=== PATIENT | male | born 1970 | race Caucasian/White ===

== ENCOUNTER 2022-07-06 09:10 | Outpatient (CLI) | payer OTHER, SELFPAY ==
--- NOTE | ~2022-07-06 | MR_ITS ---
EXAMINATION: MR shoulder LT w con DATE: 07/06/2022 11:52 INDICATION: Left shoulder pain. Left rotator cuff tear. TECHNIQUE: Magnetic resonance imaging (MRI) of the left shoulder was performed following intra-artic ular gadolinium contrast injection and without intravenous contrast. Details of the glenohumeral join t injection have been dictated separately. Sequences included axial T2-weighted FS FSE, axial T1-nestor ghted FS FSE, coronal oblique T1-weighted FS FSE, coronal oblique T2-weighted FSE, sagittal T2-weight ed FS FSE, sagittal T1-weighted FSE, and ABER (abduction external rotation) T1-weighted FS FSE. COMPARISON: None. FINDINGS: There is some mild motion artifact or blurring to some degree on all sequences which mildly limits ev aluation. Coracoacromial arch: The acromion undersurface is flat in morphology (type I). There is thinning and increased concavity t o the undersurface of the acromion suggesting sequela of prior acromioplasty. There is scarring along the acromial insertion of the coracoacromial ligament and anterior most margin of the deltoid, bladd er with minimal associated atrophy also likely related to the prior acromioplasty. Moderate acromiocl avicular osteoarthritis. Rotator cuff: Mild supraspinatus tendinopathy. Very shallow articular sided tear of the distal supraspinatus tendon with some fraying along the articular surface and mild contrast imbibition There is some articular s ided fraying and minimal intrasubstance contrast imbibition the distalmost supraspinatus tendon along its superior facet footplate which is best appreciated on the ABER images. No discrete measurable te ar defect appreciated. Likely associated small erosion along the articular side of the superior facet footplate. Minimal infraspinatus tendinopathy without tear. The teres minor tendon is normal. Mild s ubscapularis tendinopathy without tear. Normal rotator cuff muscle bulk and signal. Biceps tendon, glenoid labrum and glenohumeral cartilage: Long head of the biceps tendon is intact. The anteroinferior glenoid labrum appear small with mild fr aying along the margins suggesting chronic mild degenerative tearing. Likely SLAP tear with intra-art icular contrast extension into a small irregular cleft at the base of the superior glenoid labrum. Th e glenohumeral cartilage appears relatively preserved. Bones and other: Small bone island at the humeral head. Otherwise normal marrow signal with no edema, fracture or path ologic marrow replacing process. No abnormal increased fluid in the subacromial/subdeltoid bursa to s uggest bursitis. IMPRESSION: 1. Mild tendinopathy and small region of very shallow articular sided fraying along the distal supras pinatus tendon. No measurable rotator cuff tear defect appreciated. 2. Tear at the superior glenoid labrum with likely additional mild degeneration along the anteroinfer ior labrum. 3. Moderate acromioclavicular osteoarthritis and postoperative changes of prior acromioplasty. 4. Evaluation mildly limited by mild motion artifact or blurring on multiple sequences. Reviewed, dictated and finalized at location A. IMPRESSION: 1. Mild tendinopathy and small region of very shallow articular sided fraying a long the distal supraspinatus tendon. No measurable rotator cuff tear defect ap preciated. 2. Tear at the superior glenoid labrum with likely additional mild degeneration along the anteroinferior labrum. 3. Moderate acromioclavicular osteoarthritis and postoperative changes of prior acromioplasty. 4. Evaluation mildly limited by mild motion artifact or blurring on multiple se quences.
--- NOTE | ~2022-07-06 | XR_ITS ---
EXAMINATION: XR fl inj shoulder LT - MR/CT DATE: 07/06/2022 11:05 INDICATION: Left shoulder pain. TECHNIQUE: A time-out was performed to verify the patient's name, date of , and procedure to b e performed. The procedure including the risks, benefits, and alternatives was discussed with the pat ient. Risks discussed included bleeding and infection. The patient understood the risks and agreed to proceed. The skin overlying the rotator cuff interval of the left glenohumeral joint was prepped an d draped in usual sterile fashion. Anesthetic was administered with 1% lidocaine subcutaneously. A 22 G needle was advanced under fluoroscopic guidance into the joint. Injection of 1 mL of Omnipaque 240 confirmed intra-articular position of the needle. Subsequently, injectate consisting of 12 mL of 2:1:1 mixture of sterile saline:Omnipaque 240:1% lidocaine mixed 200:1 with 529 mg/mL Multihance anton olinium contrast was injected with intra-articular administration confirmed with intermittent fluoros copy. The needle was removed and the entry site was cleaned and dressed. There were no immediate com plications. Fluoroscopy exposure time was 0.1 minutes. The total number of images was 4. FINDINGS: Real-time fluoroscopy demonstrates the needle in the left glenohumeral joint. IMPRESSION: 1. Successful left glenohumeral joint injection of dilute gadolinium contrast mixture for subsequent MRI arthrogram which will be dictated separately. Reviewed, dictated and finalized at location A. IMPRESSION: 1. Successful left glenohumeral joint injection of dilute gadolinium contrast m ixture for subsequent MRI arthrogram which will be dictated separately.
== END 2022-07-06 09:11 | disposition home or self-care (01) ==
PROVIDERS: PCP Family Medicine
DX: M75.102 Unspecified rotator cuff tear or rupture of left shoulder, not specified as traumatic (principal); M75.92 Shoulder lesion, unspecified, left shoulder; S43.432A Superior glenoid labrum lesion of left shoulder, initial encounter; M19.012 Primary osteoarthritis, left shoulder
CPT/HCPCS: 23350; 73222; A9577; Q9966

== ENCOUNTER 2023-06-23 09:47 | Outpatient (CLI) | payer OTHER, SELFPAY ==
[2023-06-23 19:15] LABS: Hematocrit 45.4 % (42.0-52.0); Mean Corpuscular Hemoglobin 31.4 pg (26-34); Mean Platelet Volume 11.2 fl (7.4-10.4); Platelet Count Result 227 k/mm3 (150-375); Red Blood Count 4.78 M/mm3 (4.6-6.20); Red Cell Distribution Width 12.8 % (11.5-14.5); White Blood Count 5.3 K/mm3 (4.5-10.0)
[2023-06-23 19:39] LABS: Vitamin D 25 Hydroxy 35.7 ng/mL
[2023-06-23 19:45] LABS: Alanine Aminotransferase 146 U/L (6-50); Albumin Level 4.3 g/dL (3.5-5.1); Alkaline Phosphatase 80 U/L (38-126); Anion Gap 4 mmol/L (8-16); Aspartate Amino Transferase 120 U/L (17-59); Bilirubin,Total 0.7 mg/dL (0.2-1.3); Blood Urea Nitrogen 13 mg/dL (9-20); Calcium 9.5 mg/dL (8.4-10.2); Carbon Dioxide 29 mmol/L (22-30); Chloride 103 mmol/L (98-107); Cholesterol 240 mg/dL (0-200); Estimated Glomerular Filt Rate > 60; Glucose 100 mg/dL (65-110); HDL Direct 57 mg/dL; Potassium 3.8 mmol/L (3.4-5.0); Sodium 136 mmol/L (137-145); Triglycerides 219 mg/dL (<150)
[2023-06-23 19:56] LABS: LDL Cholesterol Direct 129 mg/dL
[2023-06-25 14:00] LABS: Hemoglobin A1C 7.1 % (<5.7)
[2023-06-25 14:12] LABS: Prostate Specific Antigen 0.8 ng/mL (< OR = 4.0)
[2023-06-28 12:13] LABS: Testosterone Free 62.5 pg/mL (35.0-155.0); Testosterone Total 456 ng/dL (250-1100)
== END 2023-06-23 09:48 | disposition home or self-care (01) ==
PROVIDERS: PCP Nurse Practitioner Adult Health; Visit Provider Nurse Practitioner Adult Health
DX: Z12.5 Encounter for screening for malignant neoplasm of prostate (principal); I10 Essential (primary) hypertension; N52.9 Male erectile dysfunction, unspecified; R53.83 Other fatigue; E66.9 Obesity, unspecified; Z13.9 Encounter for screening, unspecified
CPT/HCPCS: 36415; 80053; 80061; 82306; 83036; 84153; 84402; 84403; 84443; 85027; G0103

== ENCOUNTER 2023-09-23 08:57 | Outpatient (CLI) | payer OTHER, SELFPAY ==
[2023-09-23 19:56] LABS: Alanine Aminotransferase 43 U/L (6-50); Albumin Level 4.5 g/dL (3.5-5.1); Alkaline Phosphatase 79 U/L (38-126); Anion Gap 6 mmol/L (4-12); Aspartate Amino Transferase 76 U/L (17-59); Bilirubin,Total 0.6 mg/dL (0.2-1.3); Blood Urea Nitrogen 17 mg/dL (9-20); Calcium 9.3 mg/dL (8.4-10.2); Carbon Dioxide 29 mmol/L (22-30); Chloride 104 mmol/L (98-107); Cholesterol 185 mg/dL (0-200); Estimated Glomerular Filt Rate > 60; Glucose 90 mg/dL (65-110); HDL Direct 66 mg/dL; Potassium 4.1 mmol/L (3.4-5.0); Sodium 139 mmol/L (137-145); Triglycerides 191 mg/dL (<150)
[2023-09-23 20:07] LABS: LDL Cholesterol Direct 78 mg/dL
[2023-09-23 20:11] LABS: Hemoglobin A1C 5.4 % (<5.7)
[2023-09-23 20:20] LABS: Creatinine Urine 47.8 mg/dL
[2023-09-23 20:29] LABS: MALB Creatinine Ratio < 12.6 mg/g (0-30); Microalbumin Urine Random < 6.0 mg/L (0-16.7)
== END 2023-09-23 08:58 | disposition home or self-care (01) ==
LOC: ANHBWCLAB 08:59
PROVIDERS: PCP Nurse Practitioner Adult Health; Visit Provider Nurse Practitioner Adult Health
DX: E11.9 Type 2 diabetes mellitus without complications (principal)
CPT/HCPCS: 36415; 80053; 80061; 82043; 82565; 83036

== ENCOUNTER 2024-03-15 15:55 | Outpatient (CLI) | payer OTHER, SELFPAY ==
--- NOTE | ~2024-03-15 | XR_ITS ---
XR shoulder LT min 2V Ordering provider: Barbara Tavera APRN History: . chronic lat/post LT shoulder pain, much worse in last week . Comparison: None. FINDINGS: BONES: No acute fracture or dislocation. JOINT SPACES: The acromioclavicular joint shows mild osteoarthritic changes. The glenohumeral joint i s normal. SOFT TISSUES: Normal. IMPRESSION: No acute osseous abnormality left shoulder. Mild osteoarthritic changes of the acromioclavicular joint. Reviewed, dictated and finalized at location A. [employer]
== END 2024-03-15 15:56 | disposition home or self-care (01) ==
LOC: ANHBWCIMG 15:56
PROVIDERS: PCP Nurse Practitioner Adult Health; Visit Provider Nurse Practitioner Adult Health
DX: M19.012 Primary osteoarthritis, left shoulder (principal)
CPT/HCPCS: 73030